=== PATIENT | male | born 1960 | race Caucasian/White ===

== ENCOUNTER 2017-08-08 08:36 | Emergency (ER) | payer MEDICAID ==
[~2017-08-08] VITALS: Ht 182.9 cm; Wt 129.3 kg
[~2017-08-08 08:36] MED LIST: ALBU0.084; ASPI325T4 PO; ASPI81CH43; BECL0.07; CARV25TA55 PO; FURO80TA PO; LORA-654; NITR400A5 TL; SPIR50TA2
[2017-08-08 10:07] LABS: Basophils # (auto) 0 uL; Basophils % (auto) 0.2 % (0.0-2.0); Eosinophils # (auto) 0 uL; Eosinophils % (auto) 0.1 % (0.0-7.0); Hemoglobin 16.8 g/dL (13.5-17.5); Lymphocytes # (auto) 1.6 uL; Lymphocytes % (auto) 15.7 % (10.0-50.0); Mean Corpuscular Hemoglobin 31.7 pg (28.0-32.0); Mean Corpuscular Hgb Conc. 33.7 g/dL (32.0-36.0); Mean Corpuscular Volume 94.1 fL (80.0-100.0); Monocytes # (auto) 1.2 uL; Monocytes % (auto) 11.1 % (0.0-12.0); Neutrophils # (auto) 7.6 uL; Neutrophils % (auto) 72.9 % (37.0-80.0); Nucleated Red Blood Cells % 0.1 %; Platelet Count (auto) 241 10^3/uL (140-450); Red Blood Cells 5.31 10^6/uL (4.5-5.90); Red Cell Distribution Width 14.4 % (11.8-14.3); White Blood Cell 10.5 10^3/uL (4.4-10.8)
[2017-08-08] MEDS ORDERED: SODIUM CHLORIDE 0.9% 1,000 ML IV ONE (10:28)
[2017-08-08 10:36] LABS: Alanine Aminotransferase 73 U/L (16-61); Albumin 2.8 g/dL (3.4-5.0); Alkaline Phosphatase 102 U/L (45-117); Anion Gap 8 (5-15); Aspartate Aminotransferase 57 U/L (15-37); Bilirubin, Total 0.6 mg/dL (0.2-1.0); Blood Urea Nitrogen 16 mg/dL (7-18); Calcium 8.2 mg/dL (8.5-10.1); Carbon Dioxide 33 mmol/L (21-32); Chloride 96 mmol/L (98-107); GFR African American 99 mL/min; GFR Non-African American 82 mL/min; Glucose 118 mg/dL (74-106); Potassium 3.8 mmol/L (3.5-5.1); Sodium 137 mmol/L (136-145); Total Protein 7.2 g/dL (6.4-8.2)
[2017-08-08] MEDS ORDERED: ALBUTEROL SULF 2.5 MG/0.5ML(0.5%) NEB SOLN NEB ONE (12:00)
[2017-08-08] MEDS ORDERED: IPRATROPIUM BROM 0.5 MG/2.5ML INH SOL NEB ONE (12:00)
[2017-08-08] MEDS ORDERED: FUROSEMIDE 40 MG/4 ML VIAL IV ONE (12:00)
[2017-08-08 14:53] VITALS: BP 111/63
== END 2017-08-08 14:55 | disposition home or self-care (01) ==
LOC: ER 08:36
DX: J44.1 Chronic obstructive pulmonary disease with (acute) exacerbation (principal); R09.89 Other specified symptoms and signs involving the circulatory and respiratory systems; E44.0 Moderate protein-calorie malnutrition; I50.9 Heart failure, unspecified; I11.0 Hypertensive heart disease with heart failure; I25.10 Atherosclerotic heart disease of native coronary artery without angina pectoris; F17.210 Nicotine dependence, cigarettes, uncomplicated; Z68.38 Body mass index [BMI] 38.0-38.9, adult
CPT/HCPCS: 36415; 71046; 80053; 83735; 83880; 84443; 84484; 85025; 87400; 93005; 94640; 94761; 96361; 96374; 99285; J1940; J7030

== ENCOUNTER 2017-11-29 10:32 | Emergency (ER) | payer MEDICAID ==
[~2017-11-29] VITALS: Ht 180.3 cm; Wt 136.1 kg
[2017-11-29 11:06] LABS: Basophils # (auto) 0.1 uL; Basophils % (auto) 1.3 % (0.0-2.0); Eosinophils # (auto) 0.2 uL; Eosinophils % (auto) 2.7 % (0.0-7.0); Hematocrit 52.4 % (41.0-53.0); Hemoglobin 17.3 g/dL (13.5-17.5); Lymphocytes # (auto) 2.7 uL; Lymphocytes % (auto) 32.1 % (10.0-50.0); Mean Corpuscular Hemoglobin 31.3 pg (28.0-32.0); Mean Corpuscular Hgb Conc. 33.1 g/dL (32.0-36.0); Mean Corpuscular Volume 94.5 fL (80.0-100.0); Monocytes # (auto) 1.1 uL; Monocytes % (auto) 13.2 % (0.0-12.0); Neutrophils # (auto) 4.3 uL; Neutrophils % (auto) 50.7 % (37.0-80.0); Nucleated Red Blood Cells % 0.1 %; Platelet Count (auto) 323 10^3/uL (140-450); Red Blood Cells 5.55 10^6/uL (4.5-5.90); White Blood Cell 8.6 10^3/uL (4.4-10.8)
[2017-11-29 11:31] LABS: Alanine Aminotransferase 16 U/L (16-61); Albumin 3.2 g/dL (3.4-5.0); Alkaline Phosphatase 107 U/L (45-117); Anion Gap 8 (5-15); Aspartate Aminotransferase 13 U/L (15-37); BUN/Creatinine Ratio 11.1; Bilirubin, Total 0.4 mg/dL (0.2-1.0); Blood Urea Nitrogen 26 mg/dL (7-18); Calcium 8.9 mg/dL (8.5-10.1); Carbon Dioxide 33 mmol/L (21-32); Chloride 98 mmol/L (98-107); GFR African American 37 mL/min; GFR Non-African American 31 mL/min; Glucose 105 mg/dL (74-106); Magnesium 2.7 mg/dL (1.6-2.6); Sodium 139 mmol/L (136-145); Total Protein 7.2 g/dL (6.4-8.2)
[2017-11-29] MEDS ORDERED: SODIUM CHLORIDE 0.9% 1,000 ML IV ONE ×2 (11:37→13:45)
[2017-11-29] MEDS ORDERED: POTASSIUM CHL 10% (20 MEQ/15ML) 15ml ORAL SOLN PO ONE (13:15)
[2017-11-29] MEDS ORDERED: HYDROcodone-ACET 5/325MG TAB PO PRN (13:45)
[2017-11-29] MEDS ORDERED: LORazepam 0.5 MG TAB PO PRN (13:45)
[2017-11-29] MEDS ORDERED: THIAMINE 100mg/ml INJ (200mg/2ml VIAL) IV ONE (13:45)
[2017-11-29] MEDS ORDERED: NITROGLYCERIN 0.4 MG SL TAB SL PRN (13:45)
[2017-11-29] MEDS ORDERED: chlordiazePOXIDE HCL 25 MG CAP PO PRN (13:45)
[2017-11-29] MEDS ORDERED: LABETALOL HCL 5 MG/ML ML 20ML VIAL IV PRN (13:45)
[2017-11-29] MEDS ORDERED: LACTULOSE 20Gm/30ML SOLN PO PRN (13:45)
[2017-11-29] MEDS ORDERED: PROMETHAZINE HCL 25 MG/ML 1ML IV PRN (13:45)
[2017-11-29] MEDS ORDERED: MORPHINE SULFATE 4 MG/ML SYR/VIAL IV PRN ×2 (13:45)
[2017-11-29] MEDS ORDERED: TEMAZEPAM 15 MG CAP PO PRN (13:45)
[2017-11-29] MEDS ORDERED: ACETAMINOPHEN 500 MG TAB PO PRN (13:45)
[2017-11-29 14:30] LABS: CRP High Sensitivity 1.29 mg/dL (< 0.3)
[2017-11-29] MEDS ORDERED: chlordiazePOXIDE HCL 5 MG CAP PO SCH (18:00)
[2017-11-29] MEDS: SODIUM CHLORIDE 0.9% 1,000 ML IV SCH ×2 (19:31→23:08)
[2017-11-29 22:00] VITALS: BP 108/74
[2017-11-29] MEDS ORDERED: ATORVASTATIN 20 MG TAB PO SCH (22:00)
[2017-11-30 08:42] LABS: Free T4 (Free Thyroxine) 1.2 ng/dL (0.89-1.76)
[2017-11-30 09:26] LABS: Folate (Folic Acid) 11.47 ng/mL (5.38-24)
[2017-11-30 09:36] LABS: Free T3 4.25 pg/mL (2.3-4.2)
[2017-11-30] MEDS ORDERED: THIAMINE 100mg/ml INJ (200mg/2ml VIAL) IV SCH (10:00)
[2017-11-30] MEDS ORDERED: ASPirin 81 mg TAB PO SCH (10:00)
[2017-11-30] MEDS ORDERED: ENOXAPARIN SOD 40 MG/0.4 ML SYRINGE SC SCH (10:00)
== END 2017-11-29 23:30 | disposition left against medical advice (07) ==
LOC: EDBD 10:32 → ER 10:32 → EDUNIT# 10:32 → TELE 10:33 → UNDOADMIN 10:33 → ER 23:30
DX: R55 Syncope and collapse (principal); E66.01 Morbid (severe) obesity due to excess calories; E87.6 Hypokalemia; I11.0 Hypertensive heart disease with heart failure; I50.9 Heart failure, unspecified; J44.9 Chronic obstructive pulmonary disease, unspecified; I25.10 Atherosclerotic heart disease of native coronary artery without angina pectoris; F17.210 Nicotine dependence, cigarettes, uncomplicated; Z79.82 Long term (current) use of aspirin; F41.9 Anxiety disorder, unspecified
CPT/HCPCS: 36415; 70450; 71045; 80053; 82150; 82550; 82607; 82746; 83605; 83690; 83735; 84439; 84443; 84481; 84484; 85025; 85379; 85652; 86141; 87040; 87077; 87186; 93886; 94761; 96374; 99285; J3411; 93005; 96361

== ENCOUNTER 2020-09-27 23:49 | Inpatient (IN) | payer MEDICAID ==
[~2020-09-27] VITALS: Ht 182.9 cm; Wt 134.9 kg
[~2020-09-27 23:49] MED LIST changes: +FURO1TAB32 PO; -FURO80TA PO; -LORA-654; +LORA0.5T20
[2020-09-28] VITALS (41 sets, daily range): BP systolic 84–189; BP diastolic 36–94
[2020-09-28 01:44] LABS: Basophils # (auto) 0.1 10 ^3/uL (0-0.2); Eosinophils # (auto) 0 10 ^3/uL (0-0.8)
[2020-09-28] MEDS ORDERED: FUROSEMIDE 20 MG/2 ML VIAL IV ONE (01:45)
[2020-09-28 01:47] LABS: Albumin 3.2 g/dL (3.4-5.0); BUN/Creatinine Ratio 16.9; Basophils % (auto) 0.7 % (0.0-2.0); Calcium 9.2 mg/dL (8.5-10.1); Eosinophils % (auto) 0.5 % (0.0-7.0); Hematocrit 54.7 % (41.0-53.0); Hemoglobin 17.9 g/dL (13.5-17.5); Lymphocytes # (auto) 1.6 10 ^3/uL (0.4-5.4); Lymphocytes % (auto) 22.5 % (10.0-50.0); Magnesium 2.1 mg/dL (1.6-2.6); Mean Corpuscular Hemoglobin 32.8 pg (28.0-32.0); Mean Corpuscular Hgb Conc. 32.8 g/dL (32.0-36.0); Monocytes # (auto) 0.8 10 ^3/uL (0-1.3); Monocytes % (auto) 11.6 % (0.0-12.0); Neutrophils # (auto) 4.6 10 ^3/uL (1.6-8.6); Neutrophils % (auto) 64.7 % (37.0-80.0); Nucleated Red Blood Cells % 0.5 %; Platelet Count (auto) 208 10^3/uL (140-450); Red Blood Cells 5.47 10^6/uL (4.5-5.90); Red Cell Distribution Width 15.8 % (11.8-14.3); White Blood Cell 7.1 10^3/uL (4.4-10.8)
[2020-09-28 01:49] LABS: INR 1.24 (0.9-1.15)
[2020-09-28 01:52] LABS: Bilirubin, Total 1.3 mg/dL (0.2-1.0)
[2020-09-28] MEDS ORDERED: NITROGLYCERIN 2% OINT 1GM PKG TD ONE (02:45)
[2020-09-28] MEDS ORDERED: ASPirin 325 MG TAB PO ONE (02:45)
[2020-09-28] MEDS ORDERED: ENOXAPARIN SOD 100 MG/1 ML SYRINGE SC ONE (02:45)
[2020-09-28] MEDS ORDERED: ONDANSETRON HCL 4 MG/2 ML VIAL IV ONE (03:30)
[2020-09-28] MEDS ORDERED: NITROGLYCERIN 50MG/250ML 250 ML IV ONE (05:30)
[2020-09-28] MEDS ORDERED: HYDROcodone-ACET 5/325MG TAB PO PRN (06:30)
[2020-09-28] MEDS ORDERED: ONDANSETRON HCL 4 MG/2 ML VIAL IV PRN (06:30)
[2020-09-28] MEDS ORDERED: NITROGLYCERIN 0.4 MG SL TAB SL PRN (06:30)
[2020-09-28] MEDS ORDERED: MORPHINE SULF INJ 2 MG/ML SYRINGE 1ML IV PRN (06:30)
[2020-09-28] MEDS ORDERED: DOCUSATE SOD 100 MG CAP PO PRN (06:30)
[2020-09-28] MEDS ORDERED: MORPHINE SULFATE 4 MG/ML SYR/VIAL IV PRN (06:30)
[2020-09-28 07:40] LABS: Basophils # (auto) 0.1 10 ^3/uL (0-0.2); Basophils % (auto) 0.8 % (0.0-2.0); Eosinophils # (auto) 0 10 ^3/uL (0-0.8); Eosinophils % (auto) 0.4 % (0.0-7.0); Hematocrit 51.5 % (41.0-53.0); Hemoglobin 16.8 g/dL (13.5-17.5); Lymphocytes # (auto) 1.3 10 ^3/uL (0.4-5.4); Lymphocytes % (auto) 17.6 % (10.0-50.0); Mean Corpuscular Hemoglobin 32.8 pg (28.0-32.0); Mean Corpuscular Hgb Conc. 32.6 g/dL (32.0-36.0); Mean Corpuscular Volume 100.6 fL (80.0-100.0); Monocytes # (auto) 1.1 10 ^3/uL (0-1.3); Monocytes % (auto) 14.1 % (0.0-12.0); Neutrophils # (auto) 5.1 10 ^3/uL (1.6-8.6); Neutrophils % (auto) 67.1 % (37.0-80.0); Nucleated Red Blood Cells % 0.2 %; Platelet Count (auto) 183 10^3/uL (140-450); Red Blood Cells 5.11 10^6/uL (4.5-5.90); Red Cell Distribution Width 15.7 % (11.8-14.3); White Blood Cell 7.6 10^3/uL (4.4-10.8)
[2020-09-28 07:52] LABS: Calcium 9.1 mg/dL (8.5-10.1); Potassium 4.7 mmol/L (3.5-5.1)
[2020-09-28 07:58] LABS: Albumin 3.1 g/dL (3.4-5.0); BUN/Creatinine Ratio 20.4; Bilirubin, Total 1.3 mg/dL (0.2-1.0); Total Protein 7.6 g/dL (6.4-8.2)
[2020-09-28] MEDS ORDERED: MIDAZOLAM HCL 5 MG/ML-1ML VIAL IV ONE (08:45)
[2020-09-28] MEDS ORDERED: ETOMIDATE (2MG/ML) 20ML VIAL IV ONE (08:45)
[2020-09-28] MEDS ORDERED: SUCCINYLCHOLINE CHLORIDE 20 MG/ML 10ML VIAL IV ONE (08:45)
[2020-09-28] MEDS: MIDAZOLAM DRIP 50 mg/50mL 50 ML IV SCH ×2 (08:45→19:20)
[2020-09-28 09:07] LABS: INR 1.22 (0.9-1.15); Partial Thromboplastin Time 34.3 sec (23.0-31.2)
[2020-09-28] MEDS ORDERED: NOREPINEPHRINE 8 MG/250ML KIT 250 ML IV ONE (09:34)
[2020-09-28] MEDS ORDERED: CARVEDILOL 12.5 MG TAB PO SCH (10:00)
[2020-09-28] MEDS ORDERED: PHENYLEPHRINE IV 250 ML IV ONE (10:42)
[2020-09-28] MEDS ORDERED: fentaNYL Drip 2500mCg/250mlNS 250 ML IV ONE (10:42)
[2020-09-28] MEDS: NOREPINEPHRINE 8 MG/250ML KIT 250 ML IV SCH (10:45)
[2020-09-28] MEDS ORDERED: AMIODARONE HCL (50 MG/ ML) 3 ML VIAL IV ONE (10:52)
[2020-09-28] MEDS ORDERED: AMIODARONE 450mg/250ml AE 250 ML IV ONE (10:52)
[2020-09-28] MEDS ORDERED: AMIODARONE HCL 150 MG in D5W 5% 100 ML IV ONE (11:00)
[2020-09-28] MEDS ORDERED: AMIODARONE 450mg/250ml AE 250 ML IV SCH (11:15)
[2020-09-28] MEDS: ASPirin 81 mg TAB PO SCH (13:00)
[2020-09-28] MEDS: MULTIPLE VITAMIN TAB PO SCH (13:00)
[2020-09-28] MEDS: ASCORBIC ACID 500 MG TAB PO SCH ×2 (13:00→21:12)
[2020-09-28] MEDS: ZINC SULFATE 220mg CAP or TAB PO SCH (13:00)
[2020-09-28] MEDS: FAMOTIDINE (10MG/ML) 2ML VL IV SCH ×2 (13:00→21:10)
[2020-09-28] MEDS: VASOPRESSIN 50 UNITS in D5W 5% 247.5 ML IV SCH (13:15)
[2020-09-28] MEDS: fentaNYL Drip 2500mCg/250mlNS 250 ML IV SCH (13:15)
[2020-09-28] MEDS ORDERED: PHENYLEPHRINE IV 250 ML IV SCH (13:15)
[2020-09-28] MEDS: SODIUM CHLOR 0.9% PF (SALINE LOCK) 10ML VIAL/SYR IV SCH ×2 (14:00→21:11)
[2020-09-28] MEDS ORDERED: HEPARIN SODIUM (PORCINE) 5000 UNITS/ML 1ML VIAL SC SCH (14:00)
[2020-09-28] MEDS ORDERED: ALBUTEROL SULF HFA 90MCG INH 200DOSE IN SCH (14:00)
[2020-09-28] MEDS ORDERED: DIGOXIN (250MCG/ML) 2 ML AMPULE IV ONE ×2 (15:45→20:00)
[2020-09-28] MEDS: AMIODARONE 450mg/250ml AE 250 ML IV SCH (17:15)
[2020-09-28] MEDS: FUROSEMIDE 40 MG/4 ML VIAL IV SCH (18:15)
[2020-09-28] MEDS: methylPREDNISolone SOD SUCC 40 MG/ML VL IV SCH (21:14)
[2020-09-28] MEDS: ACETAMINOPHEN 325 MG TAB PO PRN (21:40)
[2020-09-28] MEDS: PHENYLEPHRINE INJ 40 MG in SODIUM CHL 0.9% 246 ML IV SCH (22:00)
[2020-09-29] VITALS (78 sets, daily range): BP systolic 88–128; BP diastolic 55–79
[2020-09-29 00:18] LABS: Urine Bacteria FEW /hpf (None Seen); Urine Blood 3+ /uL (Negative); Urine Hyaline Cast MANY /lpf (0 - 2); Urine Mucus FEW (None Seen); Urine Specific Gravity 1.016 (1.001-1.035); Urine WBC 147 /hpf (0 - 3); Urine WBC Clumps PRESENT /hpf (None Seen)
[2020-09-29 04:37] LABS: Basophils # (auto) 0 10 ^3/uL (0-0.2); Basophils % (auto) 0.3 % (0.0-2.0); Eosinophils # (auto) 0 10 ^3/uL (0-0.8); Hematocrit 50.8 % (41.0-53.0); Hemoglobin 16.8 g/dL (13.5-17.5); Lymphocytes # (auto) 0.5 10 ^3/uL (0.4-5.4); Lymphocytes % (auto) 4.9 % (10.0-50.0); Mean Corpuscular Hemoglobin 32.5 pg (28.0-32.0); Mean Corpuscular Volume 98.5 fL (80.0-100.0); Monocytes # (auto) 0.7 10 ^3/uL (0-1.3); Monocytes % (auto) 7.2 % (0.0-12.0); Neutrophils # (auto) 8.8 10 ^3/uL (1.6-8.6); Neutrophils % (auto) 87.6 % (37.0-80.0); Nucleated Red Blood Cells % 0.2 %; Platelet Count (auto) 180 10^3/uL (140-450); Red Blood Cells 5.15 10^6/uL (4.5-5.90); Red Cell Distribution Width 14.9 % (11.8-14.3); White Blood Cell 10.1 10^3/uL (4.4-10.8)
[2020-09-29 05:30] LABS: Calcium 8.8 mg/dL (8.5-10.1); Potassium 4.9 mmol/L (3.5-5.1)
[2020-09-29 05:34] LABS: Albumin 2.5 g/dL (3.4-5.0); BUN/Creatinine Ratio 19.6
[2020-09-29 05:36] LABS: Bilirubin, Total 2.2 mg/dL (0.2-1.0); Total Protein 6.7 g/dL (6.4-8.2)
[2020-09-29] MEDS: SODIUM CHLOR 0.9% PF (SALINE LOCK) 10ML VIAL/SYR IV SCH ×3 (06:10→21:49)
[2020-09-29] MEDS: FUROSEMIDE 40 MG/4 ML VIAL IV SCH ×2 (06:11→17:30)
[2020-09-29] MEDS: MIDAZOLAM DRIP 50 mg/50mL 50 ML IV SCH ×5 (06:35→23:45)
[2020-09-29] MEDS: PHENYLEPHRINE INJ 40 MG in SODIUM CHL 0.9% 246 ML IV SCH ×4 (07:30→22:19)
[2020-09-29] MEDS: AMIODARONE 450mg/250ml AE 250 ML IV SCH ×2 (08:39→23:44)
[2020-09-29] MEDS: cefTRIAXone 1GM/50ML D5W 50 ML IV SCH (09:10)
[2020-09-29] MEDS: FAMOTIDINE (10MG/ML) 2ML VL IV SCH ×2 (09:16→21:49)
[2020-09-29] MEDS: ASPirin 81 mg TAB PO SCH (09:16)
[2020-09-29] MEDS: methylPREDNISolone SOD SUCC 40 MG/ML VL IV SCH ×2 (09:16→21:49)
[2020-09-29] MEDS: ENOXAPARIN SOD 150 MG/1 ML SYRINGE SC SCH (09:17)
[2020-09-29] MEDS: ASCORBIC ACID 500 MG TAB PO SCH ×2 (09:17→22:17)
[2020-09-29] MEDS: MULTIPLE VITAMIN TAB PO SCH (09:17)
[2020-09-29] MEDS: ZINC SULFATE 220mg CAP or TAB PO SCH (09:17)
[2020-09-29] MEDS ORDERED: MORPHINE SULFATE 4 MG/ML SYR/VIAL IV PRN (10:00)
[2020-09-29] MEDS: NOREPINEPHRINE 8 MG/250ML KIT 250 ML IV SCH (10:45)
[2020-09-29] MEDS: AZITHROMYCIN 500MG/ 250ML 250 ML IV SCH (11:00)
[2020-09-29] MEDS: VASOPRESSIN 50 UNITS in D5W 5% 247.5 ML IV SCH (13:15)
[2020-09-29] MEDS: fentaNYL Drip 2500mCg/250mlNS 250 ML IV SCH (13:15)
[2020-09-30] VITALS (103 sets, daily range): BP systolic 80–124; BP diastolic 54–80
[2020-09-30] MEDS: fentaNYL Drip 2500mCg/250mlNS 250 ML IV SCH (04:21)
[2020-09-30] MEDS: MIDAZOLAM DRIP 50 mg/50mL 50 ML IV SCH ×5 (04:21→22:30)
[2020-09-30] MEDS: PHENYLEPHRINE INJ 40 MG in SODIUM CHL 0.9% 246 ML IV SCH ×3 (05:12→17:43)
[2020-09-30 05:22] LABS: Basophils # (auto) 0 10 ^3/uL (0-0.2); Basophils % (auto) 0.1 % (0.0-2.0); Eosinophils # (auto) 0 10 ^3/uL (0-0.8); Hematocrit 49.1 % (41.0-53.0); Hemoglobin 16.5 g/dL (13.5-17.5); Lymphocytes # (auto) 0.5 10 ^3/uL (0.4-5.4); Lymphocytes % (auto) 4.7 % (10.0-50.0); Mean Corpuscular Hemoglobin 32.9 pg (28.0-32.0); Mean Corpuscular Hgb Conc. 33.5 g/dL (32.0-36.0); Mean Corpuscular Volume 98.1 fL (80.0-100.0); Monocytes # (auto) 0.5 10 ^3/uL (0-1.3); Monocytes % (auto) 4.8 % (0.0-12.0); Neutrophils # (auto) 9.7 10 ^3/uL (1.6-8.6); Neutrophils % (auto) 90.4 % (37.0-80.0); Nucleated Red Blood Cells % 0.2 %; Platelet Count (auto) 195 10^3/uL (140-450); Red Blood Cells 5.01 10^6/uL (4.5-5.90); Red Cell Distribution Width 15.2 % (11.8-14.3); White Blood Cell 10.7 10^3/uL (4.4-10.8)
[2020-09-30 05:28] LABS: Calcium 8.8 mg/dL (8.5-10.1); Potassium 4.1 mmol/L (3.5-5.1)
[2020-09-30 05:30] LABS: BUN/Creatinine Ratio 27.2
[2020-09-30] MEDS: SODIUM CHLOR 0.9% PF (SALINE LOCK) 10ML VIAL/SYR IV SCH ×3 (05:30→21:36)
[2020-09-30] MEDS: FUROSEMIDE 40 MG/4 ML VIAL IV SCH ×2 (05:30→18:05)
[2020-09-30] MEDS: ENOXAPARIN SOD 150 MG/1 ML SYRINGE SC SCH (08:58)
[2020-09-30] MEDS: ASCORBIC ACID 500 MG TAB PO SCH ×2 (08:58→21:37)
[2020-09-30] MEDS: MULTIPLE VITAMIN TAB PO SCH (08:58)
[2020-09-30] MEDS: ASPirin 81 mg TAB PO SCH (08:58)
[2020-09-30] MEDS: methylPREDNISolone SOD SUCC 40 MG/ML VL IV SCH ×2 (08:58→21:36)
[2020-09-30] MEDS: ZINC SULFATE 220mg CAP or TAB PO SCH (08:58)
[2020-09-30] MEDS: FAMOTIDINE (10MG/ML) 2ML VL IV SCH ×2 (08:59→21:35)
[2020-09-30] MEDS: cefTRIAXone 1GM/50ML D5W 50 ML IV SCH (08:59)
[2020-09-30] MEDS: AZITHROMYCIN 500MG/ 250ML 250 ML IV SCH (09:59)
[2020-09-30] MEDS: AMIODARONE HCL 200 MG TAB PO SCH ×2 (10:16→21:37)
[2020-09-30] MEDS: NOREPINEPHRINE 8 MG/250ML KIT 250 ML IV SCH (10:45)
[2020-09-30] MEDS: VASOPRESSIN 50 UNITS in D5W 5% 247.5 ML IV SCH (13:15)
[2020-09-30] MEDS ORDERED: SENNA 8.6 MG TAB PO PRN (13:15)
[2020-09-30] MEDS ORDERED: VANCOMYCIN PER PHARMACY 0 MG IV SCH (22:00)
[2020-09-30] MEDS ORDERED: VANCOMYCIN 1GM/250ML 250 ML IV ONE (22:30)
[2020-10-01] VITALS (106 sets, daily range): BP systolic 88–134; BP diastolic 51–91
[2020-10-01] MEDS: PHENYLEPHRINE INJ 40 MG in SODIUM CHL 0.9% 246 ML IV SCH ×2 (01:00→09:37)
[2020-10-01] MEDS: fentaNYL Drip 2500mCg/250mlNS 250 ML IV SCH ×2 (02:00→17:43)
[2020-10-01] MEDS: MIDAZOLAM DRIP 50 mg/50mL 50 ML IV SCH ×5 (02:31→23:30)
[2020-10-01 04:39] LABS: Basophils # (auto) 0 10 ^3/uL (0-0.2); Basophils % (auto) 0.2 % (0.0-2.0); Eosinophils # (auto) 0 10 ^3/uL (0-0.8); Hemoglobin 16.3 g/dL (13.5-17.5); Lymphocytes # (auto) 0.5 10 ^3/uL (0.4-5.4); Lymphocytes % (auto) 4.4 % (10.0-50.0); Mean Corpuscular Hemoglobin 32.6 pg (28.0-32.0); Mean Corpuscular Hgb Conc. 33.2 g/dL (32.0-36.0); Mean Corpuscular Volume 98.3 fL (80.0-100.0); Monocytes # (auto) 0.6 10 ^3/uL (0-1.3); Monocytes % (auto) 5.7 % (0.0-12.0); Neutrophils # (auto) 9.4 10 ^3/uL (1.6-8.6); Neutrophils % (auto) 89.7 % (37.0-80.0); Platelet Count (auto) 238 10^3/uL (140-450); Red Blood Cells 4.99 10^6/uL (4.5-5.90); Red Cell Distribution Width 15.5 % (11.8-14.3); White Blood Cell 10.5 10^3/uL (4.4-10.8)
[2020-10-01 04:48] LABS: BUN/Creatinine Ratio 29.7; Calcium 8.6 mg/dL (8.5-10.1); Potassium 4.3 mmol/L (3.5-5.1)
[2020-10-01] MEDS: SODIUM CHLOR 0.9% PF (SALINE LOCK) 10ML VIAL/SYR IV SCH ×3 (05:46→22:04)
[2020-10-01] MEDS: FUROSEMIDE 40 MG/4 ML VIAL IV SCH ×2 (05:46→17:44)
[2020-10-01] MEDS: cefTRIAXone 1GM/50ML D5W 50 ML IV SCH (09:10)
[2020-10-01] MEDS: ZINC SULFATE 220mg CAP or TAB PO SCH (09:35)
[2020-10-01] MEDS: AMIODARONE HCL 200 MG TAB PO SCH ×2 (09:35→22:04)
[2020-10-01] MEDS: FAMOTIDINE (10MG/ML) 2ML VL IV SCH ×2 (09:35→22:04)
[2020-10-01] MEDS: methylPREDNISolone SOD SUCC 40 MG/ML VL IV SCH ×2 (09:35→22:04)
[2020-10-01] MEDS: AZITHROMYCIN 500MG/ 250ML 250 ML IV SCH (09:35)
[2020-10-01] MEDS: ASPirin 81 mg TAB PO SCH (09:35)
[2020-10-01] MEDS: ENOXAPARIN SOD 150 MG/1 ML SYRINGE SC SCH (09:35)
[2020-10-01] MEDS: ASCORBIC ACID 500 MG TAB PO SCH ×2 (09:35→22:05)
[2020-10-01] MEDS: MULTIPLE VITAMIN TAB PO SCH (09:36)
[2020-10-01] MEDS ORDERED: LINEZOLID 600MG/300ML 300 ML IV ONE (10:30)
[2020-10-01] MEDS: NOREPINEPHRINE 8 MG/250ML KIT 250 ML IV SCH (10:45)
[2020-10-01] MEDS ORDERED: VANCOMYCIN 1GM/250ML 250 ML IV SCH (13:00)
[2020-10-01] MEDS: VASOPRESSIN 50 UNITS in D5W 5% 247.5 ML IV SCH (13:15)
[2020-10-01] MEDS: LINEZOLID 600MG/300ML 300 ML IV SCH (22:04)
[2020-10-02] VITALS (71 sets, daily range): BP systolic 87–130; BP diastolic 49–90
[2020-10-02] MEDS: MIDAZOLAM DRIP 50 mg/50mL 50 ML IV SCH ×3 (04:00→16:33)
[2020-10-02 05:24] LABS: Basophils # (auto) 0 10 ^3/uL (0-0.2); Basophils % (auto) 0.2 % (0.0-2.0); Eosinophils # (auto) 0 10 ^3/uL (0-0.8); Hematocrit 48.9 % (41.0-53.0); Hemoglobin 16.2 g/dL (13.5-17.5); Lymphocytes # (auto) 0.4 10 ^3/uL (0.4-5.4); Lymphocytes % (auto) 5.5 % (10.0-50.0); Mean Corpuscular Hemoglobin 32.4 pg (28.0-32.0); Mean Corpuscular Hgb Conc. 33.2 g/dL (32.0-36.0); Mean Corpuscular Volume 97.6 fL (80.0-100.0); Monocytes # (auto) 0.4 10 ^3/uL (0-1.3); Neutrophils # (auto) 5.6 10 ^3/uL (1.6-8.6); Neutrophils % (auto) 88.3 % (37.0-80.0); Nucleated Red Blood Cells % 0.2 %; Platelet Count (auto) 233 10^3/uL (140-450); Red Blood Cells 5.01 10^6/uL (4.5-5.90); Red Cell Distribution Width 15.3 % (11.8-14.3); White Blood Cell 6.4 10^3/uL (4.4-10.8)
[2020-10-02 05:36] LABS: Potassium 4.3 mmol/L (3.5-5.1)
[2020-10-02 05:42] LABS: BUN/Creatinine Ratio 35.3
[2020-10-02] MEDS: SODIUM CHLOR 0.9% PF (SALINE LOCK) 10ML VIAL/SYR IV SCH ×3 (06:00→21:49)
[2020-10-02] MEDS: FUROSEMIDE 40 MG/4 ML VIAL IV SCH ×2 (06:00→18:02)
[2020-10-02] MEDS: PHENYLEPHRINE INJ 40 MG in SODIUM CHL 0.9% 246 ML IV SCH (07:36)
[2020-10-02] MEDS: cefTRIAXone 1GM/50ML D5W 50 ML IV SCH (09:12)
[2020-10-02] MEDS: methylPREDNISolone SOD SUCC 40 MG/ML VL IV SCH ×2 (09:40→21:49)
[2020-10-02] MEDS: AZITHROMYCIN 500MG/ 250ML 250 ML IV SCH (09:40)
[2020-10-02] MEDS: FAMOTIDINE (10MG/ML) 2ML VL IV SCH ×2 (09:40→21:48)
[2020-10-02] MEDS: ZINC SULFATE 220mg CAP or TAB PO SCH (09:41)
[2020-10-02] MEDS: MULTIPLE VITAMIN TAB PO SCH (09:41)
[2020-10-02] MEDS: LINEZOLID 600MG/300ML 300 ML IV SCH ×2 (09:41→21:49)
[2020-10-02] MEDS: ENOXAPARIN SOD 150 MG/1 ML SYRINGE SC SCH (09:42)
[2020-10-02] MEDS: ASCORBIC ACID 500 MG TAB PO SCH ×2 (09:42→21:50)
[2020-10-02] MEDS: AMIODARONE HCL 200 MG TAB PO SCH ×2 (09:42→21:50)
[2020-10-02] MEDS: ASPirin 81 mg TAB PO SCH (09:42)
[2020-10-02] MEDS: NOREPINEPHRINE 8 MG/250ML KIT 250 ML IV SCH (10:45)
[2020-10-02] MEDS: VASOPRESSIN 50 UNITS in D5W 5% 247.5 ML IV SCH (13:15)
[2020-10-02 18:51] LABS: Basophils # (auto) 0 10 ^3/uL (0-0.2); Basophils % (auto) 0.1 % (0.0-2.0); Eosinophils # (auto) 0 10 ^3/uL (0-0.8); Eosinophils % (auto) 0.1 % (0.0-7.0); Hematocrit 49.9 % (41.0-53.0); Hemoglobin 16.5 g/dL (13.5-17.5); Lymphocytes # (auto) 0.3 10 ^3/uL (0.4-5.4); Lymphocytes % (auto) 5.3 % (10.0-50.0); Mean Corpuscular Hemoglobin 32.3 pg (28.0-32.0); Mean Corpuscular Volume 97.9 fL (80.0-100.0); Monocytes # (auto) 0.5 10 ^3/uL (0-1.3); Monocytes % (auto) 8.4 % (0.0-12.0); Neutrophils # (auto) 5.5 10 ^3/uL (1.6-8.6); Neutrophils % (auto) 86.1 % (37.0-80.0); Nucleated Red Blood Cells % 0.1 %; Platelet Count (auto) 231 10^3/uL (140-450); Red Blood Cells 5.09 10^6/uL (4.5-5.90); Red Cell Distribution Width 15.5 % (11.8-14.3); White Blood Cell 6.4 10^3/uL (4.4-10.8)
[2020-10-03] VITALS (78 sets, daily range): BP systolic 92–129; BP diastolic 34–99
[2020-10-03] MEDS: MIDAZOLAM DRIP 50 mg/50mL 50 ML IV SCH (00:08)
[2020-10-03 04:05] LABS: Basophils # (auto) 0 10 ^3/uL (0-0.2); Basophils % (auto) 0.2 % (0.0-2.0); Eosinophils # (auto) 0 10 ^3/uL (0-0.8); Hemoglobin 16.8 g/dL (13.5-17.5); Lymphocytes # (auto) 0.3 10 ^3/uL (0.4-5.4); Lymphocytes % (auto) 5.9 % (10.0-50.0); Mean Corpuscular Hemoglobin 32.4 pg (28.0-32.0); Mean Corpuscular Volume 98.3 fL (80.0-100.0); Monocytes # (auto) 0.3 10 ^3/uL (0-1.3); Monocytes % (auto) 5.7 % (0.0-12.0); Neutrophils # (auto) 4.8 10 ^3/uL (1.6-8.6); Neutrophils % (auto) 88.2 % (37.0-80.0); Nucleated Red Blood Cells % 0.1 %; Platelet Count (auto) 203 10^3/uL (140-450); Red Blood Cells 5.18 10^6/uL (4.5-5.90); Red Cell Distribution Width 15.6 % (11.8-14.3); White Blood Cell 5.4 10^3/uL (4.4-10.8)
[2020-10-03 04:23] LABS: Calcium 8.8 mg/dL (8.5-10.1); Potassium 4.2 mmol/L (3.5-5.1)
[2020-10-03 04:26] LABS: BUN/Creatinine Ratio 35.2
[2020-10-03] MEDS: SODIUM CHLOR 0.9% PF (SALINE LOCK) 10ML VIAL/SYR IV SCH ×3 (06:15→22:00)
[2020-10-03] MEDS: FUROSEMIDE 40 MG/4 ML VIAL IV SCH ×2 (06:43→17:43)
[2020-10-03] MEDS: cefTRIAXone 1GM/50ML D5W 50 ML IV SCH (09:33)
[2020-10-03] MEDS: methylPREDNISolone SOD SUCC 40 MG/ML VL IV SCH ×2 (10:01→22:00)
[2020-10-03] MEDS: FAMOTIDINE (10MG/ML) 2ML VL IV SCH ×2 (10:01→22:00)
[2020-10-03] MEDS: ZINC SULFATE 220mg CAP or TAB PO SCH (10:03)
[2020-10-03] MEDS: AMIODARONE HCL 200 MG TAB PO SCH ×2 (10:03→22:00)
[2020-10-03] MEDS: LACTULOSE 20Gm/30ML SOLN PO SCH (10:03)
[2020-10-03] MEDS: LINEZOLID 600MG/300ML 300 ML IV SCH ×2 (10:03→22:00)
[2020-10-03] MEDS: AZITHROMYCIN 500MG/ 250ML 250 ML IV SCH (10:03)
[2020-10-03] MEDS: ASPirin 81 mg TAB PO SCH (10:03)
[2020-10-03] MEDS: MULTIPLE VITAMIN TAB PO SCH (10:03)
[2020-10-03] MEDS: ASCORBIC ACID 500 MG TAB PO SCH ×2 (10:04→22:00)
[2020-10-03] MEDS: ENOXAPARIN SOD 150 MG/1 ML SYRINGE SC SCH (10:04)
[2020-10-03] MEDS: NOREPINEPHRINE 8 MG/250ML KIT 250 ML IV SCH (10:45)
[2020-10-03] MEDS ORDERED: AMIODARONE 450mg/250ml AE 250 ML IV ONE (12:31)
[2020-10-03] MEDS ORDERED: AMIODARONE HCL (50 MG/ ML) 3 ML VIAL IV ONE (12:31)
[2020-10-03] MEDS ORDERED: ADENOSINE 6 MG/2 ML INJ IV ONE ×2 (12:38→13:00)
[2020-10-03] MEDS: VASOPRESSIN 50 UNITS in D5W 5% 247.5 ML IV SCH (13:15)
[2020-10-03] MEDS: fentaNYL Drip 2500mCg/250mlNS 250 ML IV SCH (13:15)
[2020-10-03] MEDS ORDERED: AMIODARONE HCL 150 MG in D5W 5% 100 ML IV ONE (13:30)
[2020-10-03] MEDS ORDERED: AMIODARONE 450mg/250ml AE 250 ML IV SCH ×3 (13:45→19:45)
[2020-10-03] MEDS: PHENYLEPHRINE INJ 40 MG in SODIUM CHL 0.9% 246 ML IV SCH (16:10)
[2020-10-03] MEDS: AMIODARONE 450mg/250ml AE 250 ML IV SCH (18:47)
[2020-10-04] VITALS (69 sets, daily range): BP systolic 89–117; BP diastolic 56–91
[2020-10-04 04:31] LABS: Basophils # (auto) 0 10 ^3/uL (0-0.2); Eosinophils # (auto) 0 10 ^3/uL (0-0.8); Neutrophils # (auto) 4.1 10 ^3/uL (1.6-8.6); Neutrophils % (auto) 85.1 % (37.0-80.0); White Blood Cell 4.8 10^3/uL (4.4-10.8)
[2020-10-04 04:33] LABS: Basophils % (auto) 0.4 % (0.0-2.0); Eosinophils % (auto) 0.1 % (0.0-7.0); Hematocrit 51.6 % (41.0-53.0); Hemoglobin 17.4 g/dL (13.5-17.5); Lymphocytes # (auto) 0.3 10 ^3/uL (0.4-5.4); Mean Corpuscular Hemoglobin 33.2 pg (28.0-32.0); Mean Corpuscular Hgb Conc. 33.7 g/dL (32.0-36.0); Mean Corpuscular Volume 98.4 fL (80.0-100.0); Monocytes # (auto) 0.4 10 ^3/uL (0-1.3); Monocytes % (auto) 8.4 % (0.0-12.0); Nucleated Red Blood Cells % 0.4 %; Platelet Count (auto) 201 10^3/uL (140-450); Red Blood Cells 5.24 10^6/uL (4.5-5.90); Red Cell Distribution Width 15.1 % (11.8-14.3)
[2020-10-04 04:50] LABS: Potassium 4.4 mmol/L (3.5-5.1)
[2020-10-04 04:57] LABS: BUN/Creatinine Ratio 40.1; Magnesium 2.6 mg/dL (1.6-2.6)
[2020-10-04] MEDS: FUROSEMIDE 40 MG/4 ML VIAL IV SCH ×2 (06:00→17:36)
[2020-10-04] MEDS: SODIUM CHLOR 0.9% PF (SALINE LOCK) 10ML VIAL/SYR IV SCH ×3 (06:00→22:04)
[2020-10-04] MEDS: PHENYLEPHRINE INJ 40 MG in SODIUM CHL 0.9% 246 ML IV SCH (07:25)
[2020-10-04] MEDS: cefTRIAXone 1GM/50ML D5W 50 ML IV SCH (09:30)
[2020-10-04] MEDS: AMIODARONE HCL 200 MG TAB PO SCH ×2 (09:35→22:00)
[2020-10-04] MEDS: ZINC SULFATE 220mg CAP or TAB PO SCH (09:36)
[2020-10-04] MEDS: ASPirin 81 mg TAB PO SCH (09:36)
[2020-10-04] MEDS: MULTIPLE VITAMIN TAB PO SCH (09:36)
[2020-10-04] MEDS: AZITHROMYCIN 500MG/ 250ML 250 ML IV SCH (09:36)
[2020-10-04] MEDS: FAMOTIDINE (10MG/ML) 2ML VL IV SCH ×2 (09:36→22:04)
[2020-10-04] MEDS: methylPREDNISolone SOD SUCC 40 MG/ML VL IV SCH ×2 (09:36→22:04)
[2020-10-04] MEDS: LINEZOLID 600MG/300ML 300 ML IV SCH ×2 (09:36→22:04)
[2020-10-04] MEDS: LACTULOSE 20Gm/30ML SOLN PO SCH (09:36)
[2020-10-04] MEDS: ENOXAPARIN SOD 150 MG/1 ML SYRINGE SC SCH (09:36)
[2020-10-04] MEDS: ASCORBIC ACID 500 MG TAB PO SCH ×2 (09:36→22:05)
[2020-10-04] MEDS: NOREPINEPHRINE 8 MG/250ML KIT 250 ML IV SCH (09:37)
[2020-10-04] MEDS: VASOPRESSIN 50 UNITS in D5W 5% 247.5 ML IV SCH (10:24)
[2020-10-04] MEDS: AMIODARONE 450mg/250ml AE 250 ML IV SCH (11:45)
[2020-10-04] MEDS ORDERED: MAGNESIUM CITRATE SOLUTION 300 ML BTL PO ONE (12:00)
[2020-10-04] MEDS ORDERED: MILK OF MAGNESIA 30ML SUSP PO PRN (12:15)
[2020-10-04] MEDS: MIDAZOLAM DRIP 50 mg/50mL 50 ML IV SCH (15:28)
[2020-10-04] MEDS: fentaNYL Drip 2500mCg/250mlNS 250 ML IV SCH (23:45)
[2020-10-05] VITALS (86 sets, daily range): BP systolic 84–128; BP diastolic 58–88
[2020-10-05] MEDS: AMIODARONE 450mg/250ml AE 250 ML IV SCH (01:45)
[2020-10-05 04:33] LABS: Basophils # (auto) 0 10 ^3/uL (0-0.2); Eosinophils # (auto) 0 10 ^3/uL (0-0.8); Neutrophils # (auto) 4.3 10 ^3/uL (1.6-8.6); Red Cell Distribution Width 14.9 % (11.8-14.3); White Blood Cell 5.1 10^3/uL (4.4-10.8)
[2020-10-05 04:36] LABS: Basophils % (auto) 0.5 % (0.0-2.0); Hematocrit 53.1 % (41.0-53.0); Hemoglobin 17.8 g/dL (13.5-17.5); Lymphocytes # (auto) 0.2 10 ^3/uL (0.4-5.4); Lymphocytes % (auto) 4.7 % (10.0-50.0); Mean Corpuscular Hemoglobin 32.7 pg (28.0-32.0); Mean Corpuscular Hgb Conc. 33.5 g/dL (32.0-36.0); Mean Corpuscular Volume 97.8 fL (80.0-100.0); Monocytes # (auto) 0.5 10 ^3/uL (0-1.3); Monocytes % (auto) 9.5 % (0.0-12.0); Neutrophils % (auto) 85.3 % (37.0-80.0); Nucleated Red Blood Cells % 0.1 %; Platelet Count (auto) 215 10^3/uL (140-450); Red Blood Cells 5.43 10^6/uL (4.5-5.90)
[2020-10-05] MEDS: SODIUM CHLOR 0.9% PF (SALINE LOCK) 10ML VIAL/SYR IV SCH ×3 (06:03→22:00)
[2020-10-05] MEDS: FUROSEMIDE 40 MG/4 ML VIAL IV SCH ×2 (06:03→17:41)
[2020-10-05 07:42] LABS: BUN/Creatinine Ratio 40.3; Calcium 8.6 mg/dL (8.5-10.1); Potassium 4.1 mmol/L (3.5-5.1)
[2020-10-05] MEDS: PHENYLEPHRINE INJ 40 MG in SODIUM CHL 0.9% 246 ML IV SCH ×2 (08:10→12:59)
[2020-10-05] MEDS: NOREPINEPHRINE 8 MG/250ML KIT 250 ML IV SCH (08:19)
[2020-10-05] MEDS: MIDAZOLAM DRIP 50 mg/50mL 50 ML IV SCH ×2 (08:45→15:30)
[2020-10-05] MEDS: cefTRIAXone 1GM/50ML D5W 50 ML IV SCH (09:00)
[2020-10-05] MEDS: MULTIPLE VITAMIN TAB PO SCH (09:30)
[2020-10-05] MEDS: LINEZOLID 600MG/300ML 300 ML IV SCH (09:30)
[2020-10-05] MEDS: AMIODARONE HCL 200 MG TAB PO SCH ×2 (09:30→21:53)
[2020-10-05] MEDS: ZINC SULFATE 220mg CAP or TAB PO SCH (09:30)
[2020-10-05] MEDS: ENOXAPARIN SOD 150 MG/1 ML SYRINGE SC SCH ×2 (09:30→21:54)
[2020-10-05] MEDS: LACTULOSE 20Gm/30ML SOLN PO SCH (09:30)
[2020-10-05] MEDS: methylPREDNISolone SOD SUCC 40 MG/ML VL IV SCH (09:30)
[2020-10-05] MEDS: AZITHROMYCIN 500MG/ 250ML 250 ML IV SCH (09:30)
[2020-10-05] MEDS: FAMOTIDINE (10MG/ML) 2ML VL IV SCH ×2 (09:30→21:53)
[2020-10-05] MEDS: ASCORBIC ACID 500 MG TAB PO SCH ×2 (09:30→21:53)
[2020-10-05] MEDS: ASPirin 81 mg TAB PO SCH (09:30)
[2020-10-05] MEDS: VASOPRESSIN 50 UNITS in D5W 5% 247.5 ML IV SCH (09:31)
[2020-10-05] MEDS: fentaNYL Drip 2500mCg/250mlNS 250 ML IV SCH (13:15)
[2020-10-05] MEDS: ACETAMINOPHEN 325 MG TAB PO PRN (14:19)
[2020-10-06] VITALS (103 sets, daily range): BP systolic 84–167; BP diastolic 44–110
[2020-10-06] MEDS: MIDAZOLAM DRIP 50 mg/50mL 50 ML IV SCH
[2020-10-06 04:04] LABS: Basophils # (auto) 0 10 ^3/uL (0-0.2); Eosinophils # (auto) 0 10 ^3/uL (0-0.8); Lymphocytes # (auto) 0.6 10 ^3/uL (0.4-5.4)
[2020-10-06 04:07] LABS: Basophils % (auto) 0.3 % (0.0-2.0); Eosinophils % (auto) 0.1 % (0.0-7.0); Hematocrit 54.6 % (41.0-53.0); Hemoglobin 18.1 g/dL (13.5-17.5); Lymphocytes % (auto) 8.1 % (10.0-50.0); Mean Corpuscular Hemoglobin 32.6 pg (28.0-32.0); Mean Corpuscular Hgb Conc. 33.2 g/dL (32.0-36.0); Mean Corpuscular Volume 98.2 fL (80.0-100.0); Monocytes # (auto) 1.2 10 ^3/uL (0-1.3); Monocytes % (auto) 15.6 % (0.0-12.0); Neutrophils # (auto) 5.6 10 ^3/uL (1.6-8.6); Neutrophils % (auto) 75.9 % (37.0-80.0); Nucleated Red Blood Cells % 0.7 %; Platelet Count (auto) 217 10^3/uL (140-450); Red Blood Cells 5.56 10^6/uL (4.5-5.90); Red Cell Distribution Width 15.2 % (11.8-14.3); White Blood Cell 7.4 10^3/uL (4.4-10.8)
[2020-10-06 04:20] LABS: Calcium 9.1 mg/dL (8.5-10.1); Potassium 3.9 mmol/L (3.5-5.1)
[2020-10-06 04:23] LABS: BUN/Creatinine Ratio 43.9
[2020-10-06] MEDS: FUROSEMIDE 40 MG/4 ML VIAL IV SCH (05:08)
[2020-10-06] MEDS: SODIUM CHLOR 0.9% PF (SALINE LOCK) 10ML VIAL/SYR IV SCH ×3 (05:09→20:26)
[2020-10-06] MEDS: ENOXAPARIN SOD 150 MG/1 ML SYRINGE SC SCH ×2 (09:45→20:26)
[2020-10-06] MEDS: ASCORBIC ACID 500 MG TAB PO SCH (09:45)
[2020-10-06] MEDS: ASPirin 81 mg TAB PO SCH (09:45)
[2020-10-06] MEDS: ZINC SULFATE 220mg CAP or TAB PO SCH (09:45)
[2020-10-06] MEDS: FAMOTIDINE (10MG/ML) 2ML VL IV SCH ×2 (09:45→20:26)
[2020-10-06] MEDS: LACTULOSE 20Gm/30ML SOLN PO SCH (09:45)
[2020-10-06] MEDS: AMIODARONE HCL 200 MG TAB PO SCH (09:45)
[2020-10-06] MEDS: MULTIPLE VITAMIN TAB PO SCH (09:45)
[2020-10-06] MEDS: NOREPINEPHRINE 8 MG/250ML KIT 250 ML IV SCH (10:45)
[2020-10-06] MEDS: PHENYLEPHRINE INJ 40 MG in SODIUM CHL 0.9% 246 ML IV SCH (10:50)
[2020-10-06] MEDS: VASOPRESSIN 50 UNITS in D5W 5% 247.5 ML IV SCH (11:48)
[2020-10-06] MEDS: ACETAMINOPHEN 325 MG TAB PO PRN (11:49)
[2020-10-06] MEDS: fentaNYL Drip 2500mCg/250mlNS 250 ML IV SCH (12:02)
[2020-10-06] MEDS ORDERED: AMIODARONE 450mg/250ml AE 250 ML IV ONE (12:30)
[2020-10-06] MEDS ORDERED: AMIODARONE HCL 150 MG in D5W 5% 100 ML IV ONE (12:30)
[2020-10-06] MEDS ORDERED: AMIODARONE 450mg/250ml AE 250 ML IV SCH (12:45)
[2020-10-06] MEDS ORDERED: CEFTRIAXONE SODIUM 2 GM in D5W 5% 50 ML IV ONE (13:15)
[2020-10-06] MEDS ORDERED: ALBUMIN 5% 250 ML IV ONE ×2 (13:15→18:00)
[2020-10-06] MEDS ORDERED: METOPROLOL TARTRATE 1MG/1ML-5ML VIAL IV ONE ×2 (14:28→14:30)
[2020-10-06] MEDS ORDERED: DIGOXIN (250MCG/ML) 2 ML AMPULE ONE (14:28)
[2020-10-06] MEDS ORDERED: DIGOXIN (250MCG/ML) 2 ML AMPULE IV ONE (14:30)
[2020-10-06 14:31] LABS: Magnesium 3.1 mg/dL (1.6-2.6)
[2020-10-06 14:41] LABS: Urine Bacteria FEW /hpf (None Seen); Urine Blood 3+ /uL (Negative); Urine Hyaline Cast FEW /lpf (0 - 2); Urine Mucus FEW (None Seen); Urine Specific Gravity 1.022 (1.001-1.035)
[2020-10-06 14:47] LABS: Urine WBC 20 /hpf (0 - 3)
[2020-10-06] MEDS: DOXYCYCLINE 100MG/250ML 250 ML IV SCH (16:10)
[2020-10-06] MEDS ORDERED: TPN PER PHARMACY 0 ML IV SCH (16:30)
[2020-10-06] MEDS: ACCU-CHEK COMFORT CURVE STRIP VI SCH ×2 (17:23→23:47)
[2020-10-06] MEDS: InsuLIN REG 1unit/0.01ml Soln (100units/ml) SC SCH ×2 (17:24→23:47)
[2020-10-06] MEDS: METOPROLOL TARTRATE 1MG/1ML-5ML VIAL IV SCH (18:00)
[2020-10-06] MEDS ORDERED: FUROSEMIDE 40 MG/4 ML VIAL IV SCH (18:00)
[2020-10-06] MEDS ORDERED: DEXTROSE (50%) 50ML SYRG IV SCH (18:00)
[2020-10-06] MEDS: IPRATROPIUM BROM 0.5 MG/2.5ML INH SOL NEB SCH (18:34)
[2020-10-06] MEDS: LEVALBUTEROL HCL 1.25 MG/3 ML NEB NEB SCH (18:34)
[2020-10-06] MEDS: AMIODARONE 450mg/250ml AE 250 ML IV SCH (18:38)
[2020-10-06] MEDS: AMINO ACID INFUSION IN D10W 1,000 ML IV NR (20:17)
[2020-10-06] MEDS: LORazepam 2MG/ML-1ML VIAL IV PRN (20:44)
[2020-10-07] VITALS (49 sets, daily range): BP systolic 101–152; BP diastolic 47–97
[2020-10-07] MEDS: IPRATROPIUM BROM 0.5 MG/2.5ML INH SOL NEB SCH ×4 (00:15→18:09)
[2020-10-07] MEDS: LEVALBUTEROL HCL 1.25 MG/3 ML NEB NEB SCH ×4 (00:16→18:09)
[2020-10-07] MEDS: DOXYCYCLINE 100MG/250ML 250 ML IV SCH (03:25)
[2020-10-07] MEDS: PHENYLEPHRINE INJ 40 MG in SODIUM CHL 0.9% 246 ML IV SCH ×2 (03:30→20:10)
[2020-10-07 04:22] LABS: Basophils # (auto) 0 10 ^3/uL (0-0.2); Eosinophils # (auto) 0.1 10 ^3/uL (0-0.8); Eosinophils % (auto) 1.3 % (0.0-7.0); Hematocrit 49.8 % (41.0-53.0); Hemoglobin 16.5 g/dL (13.5-17.5); Lymphocytes # (auto) 0.8 10 ^3/uL (0.4-5.4); Lymphocytes % (auto) 10.4 % (10.0-50.0); Mean Corpuscular Hemoglobin 32.8 pg (28.0-32.0); Mean Corpuscular Hgb Conc. 33.1 g/dL (32.0-36.0); Mean Corpuscular Volume 99.2 fL (80.0-100.0); Monocytes % (auto) 13.1 % (0.0-12.0); Neutrophils # (auto) 5.6 10 ^3/uL (1.6-8.6); Neutrophils % (auto) 75.2 % (37.0-80.0); Nucleated Red Blood Cells % 0.1 %; Platelet Count (auto) 186 10^3/uL (140-450); Red Blood Cells 5.02 10^6/uL (4.5-5.90); Red Cell Distribution Width 15.1 % (11.8-14.3); White Blood Cell 7.4 10^3/uL (4.4-10.8)
[2020-10-07 04:40] LABS: Potassium 3.4 mmol/L (3.5-5.1)
[2020-10-07 04:51] LABS: Albumin 2.4 g/dL (3.4-5.0); BUN/Creatinine Ratio 43.5; Bilirubin, Total 1.3 mg/dL (0.2-1.0); Calcium 8.7 mg/dL (8.5-10.1); Magnesium 2.9 mg/dL (1.6-2.6); Phosphorus 2.4 mg/dL (2.5-4.90); Pre Albumin 29.5 mg/dL (20.0-40.0); Total Protein 5.7 g/dL (6.4-8.2)
[2020-10-07] MEDS: LORazepam 2MG/ML-1ML VIAL IV PRN ×3 (05:17→21:56)
[2020-10-07] MEDS: METOPROLOL TARTRATE 1MG/1ML-5ML VIAL IV SCH ×5 (05:46→23:18)
[2020-10-07] MEDS: SODIUM CHLOR 0.9% PF (SALINE LOCK) 10ML VIAL/SYR IV SCH ×3 (05:46→21:36)
[2020-10-07] MEDS: ACCU-CHEK COMFORT CURVE STRIP VI SCH ×3 (05:52→17:32)
[2020-10-07] MEDS: InsuLIN REG 1unit/0.01ml Soln (100units/ml) SC SCH ×4 (05:53→17:32)
[2020-10-07] MEDS: MIDAZOLAM DRIP 50 mg/50mL 50 ML IV SCH (07:44)
[2020-10-07] MEDS: AMIODARONE 450mg/250ml AE 250 ML IV SCH ×2 (07:44→10:15)
[2020-10-07] MEDS: NOREPINEPHRINE 8 MG/250ML KIT 250 ML IV SCH (07:45)
[2020-10-07] MEDS: fentaNYL Drip 2500mCg/250mlNS 250 ML IV SCH (07:45)
[2020-10-07] MEDS: VASOPRESSIN 50 UNITS in D5W 5% 247.5 ML IV SCH (07:46)
[2020-10-07] MEDS: LACTULOSE 20Gm/30ML SOLN PO SCH (07:47)
[2020-10-07] MEDS: MULTIPLE VITAMIN TAB PO SCH (10:00)
[2020-10-07] MEDS ORDERED: FUROSEMIDE 40 MG/4 ML VIAL IV SCH (10:00)
[2020-10-07] MEDS ORDERED: ASPirin 81 mg TAB PO SCH (10:00)
[2020-10-07] MEDS: ENOXAPARIN SOD 150 MG/1 ML SYRINGE SC SCH (10:17)
[2020-10-07] MEDS: FAMOTIDINE (10MG/ML) 2ML VL IV SCH ×2 (10:17→21:36)
[2020-10-07] MEDS: CEFTRIAXONE SODIUM 2 GM in D5W 5% 50 ML IV SCH (10:17)
[2020-10-07] MEDS ORDERED: POTASSIUM PHOSPHATE 22 MEQ in SODIUM CHL 0.9% 100 ML IV ONE (11:30)
[2020-10-07] MEDS ORDERED: VANCOMYCIN PER PHARMACY 0 MG IV SCH (14:15)
[2020-10-07] MEDS: VANCOMYCIN 1GM/250ML 250 ML IV SCH (16:46)
[2020-10-07] MEDS ORDERED: TPN PER PHARMACY IV NR ×6 (20:00)
[2020-10-07] MEDS: AMINO ACID INFUSION IN D10W 1,000 ML IV NR (20:00)
[2020-10-07] MEDS ORDERED: HALOPERIDOL LACTATE 5 MG/ML INJ VIAL IM PRN (22:00)
[2020-10-08] VITALS (20 sets, daily range): BP systolic 101–155; BP diastolic 61–124
[2020-10-08] MEDS: IPRATROPIUM BROM 0.5 MG/2.5ML INH SOL NEB SCH ×4 (00:13→18:23)
[2020-10-08] MEDS: LEVALBUTEROL HCL 1.25 MG/3 ML NEB NEB SCH ×4 (00:15→18:22)
[2020-10-08 04:42] LABS: Basophils # (auto) 0 10 ^3/uL (0-0.2); Basophils % (auto) 0.3 % (0.0-2.0); Eosinophils # (auto) 0.2 10 ^3/uL (0-0.8); Eosinophils % (auto) 1.9 % (0.0-7.0); Hematocrit 49.7 % (41.0-53.0); Hemoglobin 16.3 g/dL (13.5-17.5); Lymphocytes # (auto) 0.6 10 ^3/uL (0.4-5.4); Lymphocytes % (auto) 6.4 % (10.0-50.0); Mean Corpuscular Hemoglobin 32.2 pg (28.0-32.0); Mean Corpuscular Hgb Conc. 32.9 g/dL (32.0-36.0); Mean Corpuscular Volume 97.8 fL (80.0-100.0); Neutrophils # (auto) 7.7 10 ^3/uL (1.6-8.6); Neutrophils % (auto) 81.4 % (37.0-80.0); Nucleated Red Blood Cells % 0.1 %; Platelet Count (auto) 201 10^3/uL (140-450); Potassium 3.7 mmol/L (3.5-5.1); Red Blood Cells 5.08 10^6/uL (4.5-5.90); White Blood Cell 9.5 10^3/uL (4.4-10.8)
[2020-10-08 04:50] LABS: Albumin 2.3 g/dL (3.4-5.0); BUN/Creatinine Ratio 47.8; Bilirubin, Total 1.1 mg/dL (0.2-1.0); Magnesium 2.6 mg/dL (1.6-2.6); Phosphorus 2.2 mg/dL (2.5-4.90); Total Protein 5.8 g/dL (6.4-8.2)
[2020-10-08] MEDS: VANCOMYCIN 1GM/250ML 250 ML IV SCH ×2 (05:00→18:29)
[2020-10-08] MEDS: METOPROLOL TARTRATE 1MG/1ML-5ML VIAL IV SCH ×4 (06:00→14:01)
[2020-10-08] MEDS: InsuLIN REG 1unit/0.01ml Soln (100units/ml) SC SCH ×4 (06:00→23:53)
[2020-10-08] MEDS: ACCU-CHEK COMFORT CURVE STRIP VI SCH ×5 (06:00→23:54)
[2020-10-08] MEDS: SODIUM CHLOR 0.9% PF (SALINE LOCK) 10ML VIAL/SYR IV SCH ×3 (06:00→22:00)
[2020-10-08] MEDS: LORazepam 2MG/ML-1ML VIAL IV PRN ×3 (06:00→20:00)
[2020-10-08] MEDS ORDERED: POTASSIUM PHOSP 22MEQ(15MMOLE) in NS 100 ML IV ONE (09:15)
[2020-10-08] MEDS: THIAMINE 100mg/ml INJ (200mg/2ml VIAL) IV SCH (10:20)
[2020-10-08] MEDS: FUROSEMIDE 20 MG/2 ML VIAL IV SCH (10:23)
[2020-10-08] MEDS: LACTULOSE 20Gm/30ML SOLN PO SCH (10:24)
[2020-10-08] MEDS: FAMOTIDINE (10MG/ML) 2ML VL IV SCH ×2 (10:24→22:00)
[2020-10-08] MEDS: MULTIPLE VITAMIN TAB PO SCH (10:25)
[2020-10-08] MEDS: CEFTRIAXONE SODIUM 2 GM in D5W 5% 50 ML IV SCH (10:27)
[2020-10-08] MEDS ORDERED: SODIUM PHOSPHATES 20 MEQ in SODIUM CHL 0.9% 100 ML IV ONE (10:30)
[2020-10-08] MEDS: PHENYLEPHRINE INJ 40 MG in SODIUM CHL 0.9% 246 ML IV SCH (12:50)
[2020-10-08 13:10] LABS: INR 1.67 (0.9-1.15); Partial Thromboplastin Time 32.7 sec (23.0-31.2)
[2020-10-08] MEDS ORDERED: LIDOCAINE 1% (LOCAL ANESTH.) PF 5ml SDV ID ONE (15:00)
[2020-10-08] MEDS: HALOPERIDOL LACTATE 5 MG/ML INJ VIAL IM PRN ×2 (16:34)
[2020-10-08] MEDS: AMIODARONE 450mg/250ml AE 250 ML IV SCH (16:36)
[2020-10-08] MEDS: TPN PER PHARMACY IV NR ×8 (20:05)
[2020-10-09] VITALS (28 sets, daily range): BP systolic 99–145; BP diastolic 54–105
[2020-10-09] MEDS: LEVALBUTEROL HCL 1.25 MG/3 ML NEB NEB SCH ×5 (00:13→18:51)
[2020-10-09] MEDS: IPRATROPIUM BROM 0.5 MG/2.5ML INH SOL NEB SCH ×5 (00:13→18:51)
[2020-10-09] MEDS: HALOPERIDOL LACTATE 5 MG/ML INJ VIAL IM PRN (01:30)
[2020-10-09 04:35] LABS: Basophils # (auto) 0 10 ^3/uL (0-0.2); Basophils % (auto) 0.2 % (0.0-2.0); Eosinophils # (auto) 0.3 10 ^3/uL (0-0.8); Eosinophils % (auto) 2.9 % (0.0-7.0); Hematocrit 45.8 % (41.0-53.0); Lymphocytes # (auto) 0.7 10 ^3/uL (0.4-5.4); Lymphocytes % (auto) 8.5 % (10.0-50.0); Mean Corpuscular Hemoglobin 32.1 pg (28.0-32.0); Mean Corpuscular Hgb Conc. 32.8 g/dL (32.0-36.0); Mean Corpuscular Volume 97.8 fL (80.0-100.0); Neutrophils # (auto) 6.7 10 ^3/uL (1.6-8.6); Neutrophils % (auto) 77.4 % (37.0-80.0); Nucleated Red Blood Cells % 0.1 %; Platelet Count (auto) 176 10^3/uL (140-450); Red Blood Cells 4.69 10^6/uL (4.5-5.90); Red Cell Distribution Width 15.5 % (11.8-14.3); White Blood Cell 8.7 10^3/uL (4.4-10.8)
[2020-10-09] MEDS: VANCOMYCIN 1GM/250ML 250 ML IV SCH (05:00)
[2020-10-09 05:07] LABS: Albumin 2.1 g/dL (3.4-5.0); Calcium 8.6 mg/dL (8.5-10.1); Magnesium 2.4 mg/dL (1.6-2.6); Phosphorus 2.5 mg/dL (2.5-4.90); Potassium 4.4 mmol/L (3.5-5.1)
[2020-10-09 05:12] LABS: BUN/Creatinine Ratio 42.4; Bilirubin, Total 1.3 mg/dL (0.2-1.0); Total Protein 5.5 g/dL (6.4-8.2)
[2020-10-09] MEDS: PHENYLEPHRINE INJ 40 MG in SODIUM CHL 0.9% 246 ML IV SCH (05:30)
[2020-10-09] MEDS: InsuLIN REG 1unit/0.01ml Soln (100units/ml) SC SCH ×4 (06:00→23:27)
[2020-10-09] MEDS: ACCU-CHEK COMFORT CURVE STRIP VI SCH ×4 (06:08→23:28)
[2020-10-09] MEDS: METOPROLOL TARTRATE 1MG/1ML-5ML VIAL IV SCH ×4 (06:22→23:28)
[2020-10-09] MEDS: AMIODARONE 450mg/250ml AE 250 ML IV SCH (07:00)
[2020-10-09] MEDS: THIAMINE 100mg/ml INJ (200mg/2ml VIAL) IV SCH (09:36)
[2020-10-09] MEDS: FAMOTIDINE (10MG/ML) 2ML VL IV SCH ×2 (09:37→21:48)
[2020-10-09] MEDS: FUROSEMIDE 20 MG/2 ML VIAL IV SCH (09:37)
[2020-10-09] MEDS: MULTIPLE VITAMIN TAB PO SCH (09:38)
[2020-10-09] MEDS: ENALAPRIL MALEATE 2.5 MG TAB PO SCH (09:38)
[2020-10-09] MEDS: SPIRONOLACTONE 25 MG TAB PO SCH (09:38)
[2020-10-09] MEDS: LACTULOSE 20Gm/30ML SOLN PO SCH (09:39)
[2020-10-09] MEDS: CEFTRIAXONE SODIUM 2 GM in D5W 5% 50 ML IV SCH (09:40)
[2020-10-09] MEDS: SODIUM CHLOR 0.9% PF (SALINE LOCK) 10ML VIAL/SYR IV SCH ×2 (09:40→21:48)
[2020-10-09] MEDS ORDERED: VANCOMYCIN 1GM/250ML 250 ML IV SCH (13:00)
[2020-10-09] MEDS: LORazepam 2MG/ML-1ML VIAL IV PRN ×3 (16:11→22:54)
[2020-10-09] MEDS: TPN PER PHARMACY IV NR ×8 (19:50)
[2020-10-09] MEDS ORDERED: TPN PER PHARMACY IV NR ×6 (20:00)
[2020-10-10] VITALS (13 sets, daily range): BP systolic 103–143; BP diastolic 65–87
[2020-10-10] MEDS: HALOPERIDOL LACTATE 5 MG/ML INJ VIAL IM PRN
[2020-10-10] MEDS: IPRATROPIUM BROM 0.5 MG/2.5ML INH SOL NEB SCH ×4 (00:40→20:21)
[2020-10-10] MEDS: LEVALBUTEROL HCL 1.25 MG/3 ML NEB NEB SCH ×4 (00:40→20:21)
[2020-10-10 04:42] LABS: Basophils # (auto) 0.1 10 ^3/uL (0-0.2); Basophils % (auto) 0.7 % (0.0-2.0); Eosinophils # (auto) 0.7 10 ^3/uL (0-0.8); Eosinophils % (auto) 7.7 % (0.0-7.0); Hematocrit 45.2 % (41.0-53.0); Hemoglobin 15.1 g/dL (13.5-17.5); Lymphocytes # (auto) 0.7 10 ^3/uL (0.4-5.4); Lymphocytes % (auto) 7.9 % (10.0-50.0); Mean Corpuscular Hemoglobin 32.6 pg (28.0-32.0); Mean Corpuscular Hgb Conc. 33.4 g/dL (32.0-36.0); Mean Corpuscular Volume 97.5 fL (80.0-100.0); Monocytes # (auto) 0.9 10 ^3/uL (0-1.3); Monocytes % (auto) 10.1 % (0.0-12.0); Neutrophils # (auto) 6.7 10 ^3/uL (1.6-8.6); Neutrophils % (auto) 73.6 % (37.0-80.0); Nucleated Red Blood Cells % 0.2 %; Platelet Count (auto) 233 10^3/uL (140-450); Red Blood Cells 4.63 10^6/uL (4.5-5.90); Red Cell Distribution Width 15.1 % (11.8-14.3); White Blood Cell 9.1 10^3/uL (4.4-10.8)
[2020-10-10 05:00] LABS: Albumin 2.2 g/dL (3.4-5.0); Calcium 8.1 mg/dL (8.5-10.1); Magnesium 2.2 mg/dL (1.6-2.6); Potassium 3.9 mmol/L (3.5-5.1)
[2020-10-10 05:02] LABS: BUN/Creatinine Ratio 36.8
[2020-10-10 05:04] LABS: Phosphorus 2.9 mg/dL (2.5-4.90); Total Protein 5.8 g/dL (6.4-8.2)
[2020-10-10] MEDS: InsuLIN REG 1unit/0.01ml Soln (100units/ml) SC SCH ×4 (06:00→23:23)
[2020-10-10] MEDS: METOPROLOL TARTRATE 1MG/1ML-5ML VIAL IV SCH ×4 (07:09→23:21)
[2020-10-10] MEDS: ACCU-CHEK COMFORT CURVE STRIP VI SCH ×4 (07:10→23:22)
[2020-10-10] MEDS: LORazepam 2MG/ML-1ML VIAL IV PRN ×2 (09:40→23:19)
[2020-10-10] MEDS: SPIRONOLACTONE 25 MG TAB PO SCH (10:00)
[2020-10-10] MEDS: ENALAPRIL MALEATE 2.5 MG TAB PO SCH (10:00)
[2020-10-10] MEDS: LACTULOSE 20Gm/30ML SOLN PO SCH (10:00)
[2020-10-10] MEDS: MULTIPLE VITAMIN TAB PO SCH (10:00)
[2020-10-10] MEDS: THIAMINE 100mg/ml INJ (200mg/2ml VIAL) IV SCH (10:18)
[2020-10-10] MEDS: FUROSEMIDE 20 MG/2 ML VIAL IV SCH (10:19)
[2020-10-10] MEDS: FAMOTIDINE (10MG/ML) 2ML VL IV SCH ×2 (10:20→23:00)
[2020-10-10] MEDS: SODIUM CHLOR 0.9% PF (SALINE LOCK) 10ML VIAL/SYR IV SCH ×2 (10:20→23:00)
[2020-10-10] MEDS: CEFTRIAXONE SODIUM 2 GM in D5W 5% 50 ML IV SCH (11:55)
[2020-10-10] MEDS ORDERED: TPN PER PHARMACY IV NR ×8 (20:00)
[2020-10-11 05:00] VITALS: BP 129/83
[2020-10-11] MEDS: METOPROLOL TARTRATE 1MG/1ML-5ML VIAL IV SCH ×3 (05:32→18:00)
[2020-10-11] MEDS: ACCU-CHEK COMFORT CURVE STRIP VI SCH ×3 (05:47→17:59)
[2020-10-11] MEDS: InsuLIN REG 1unit/0.01ml Soln (100units/ml) SC SCH ×3 (05:47→18:00)
[2020-10-11 07:12] LABS: Basophils # (auto) 0 10 ^3/uL (0-0.2); Basophils % (auto) 0.3 % (0.0-2.0); Eosinophils # (auto) 0.2 10 ^3/uL (0-0.8); Eosinophils % (auto) 2.2 % (0.0-7.0); Hematocrit 46.8 % (41.0-53.0); Hemoglobin 15.5 g/dL (13.5-17.5); Lymphocytes # (auto) 0.6 10 ^3/uL (0.4-5.4); Lymphocytes % (auto) 5.6 % (10.0-50.0); Mean Corpuscular Hemoglobin 32.4 pg (28.0-32.0); Mean Corpuscular Hgb Conc. 33.2 g/dL (32.0-36.0); Mean Corpuscular Volume 97.8 fL (80.0-100.0); Monocytes # (auto) 1.1 10 ^3/uL (0-1.3); Monocytes % (auto) 10.2 % (0.0-12.0); Neutrophils # (auto) 8.5 10 ^3/uL (1.6-8.6); Neutrophils % (auto) 81.7 % (37.0-80.0); Nucleated Red Blood Cells % 0.1 %; Platelet Count (auto) 201 10^3/uL (140-450); Red Blood Cells 4.79 10^6/uL (4.5-5.90); Red Cell Distribution Width 15.3 % (11.8-14.3); White Blood Cell 10.4 10^3/uL (4.4-10.8)
[2020-10-11 07:34] LABS: Potassium 4.1 mmol/L (3.5-5.1)
[2020-10-11 07:43] LABS: Albumin 2.6 g/dL (3.4-5.0); BUN/Creatinine Ratio 34.4; Bilirubin, Total 0.8 mg/dL (0.2-1.0); Calcium 8.9 mg/dL (8.5-10.1); Magnesium 2.4 mg/dL (1.6-2.6); Phosphorus 3.7 mg/dL (2.5-4.90); Total Protein 6.4 g/dL (6.4-8.2)
[2020-10-11] MEDS: IPRATROPIUM BROM 0.5 MG/2.5ML INH SOL NEB SCH ×3 (07:52→11:36)
[2020-10-11] MEDS: LEVALBUTEROL HCL 1.25 MG/3 ML NEB NEB SCH ×3 (07:53→11:36)
[2020-10-11 09:00] VITALS: BP 148/93
[2020-10-11] MEDS: FUROSEMIDE 20 MG/2 ML VIAL IV SCH (09:51)
[2020-10-11] MEDS: FAMOTIDINE (10MG/ML) 2ML VL IV SCH (09:51)
[2020-10-11] MEDS: THIAMINE 100mg/ml INJ (200mg/2ml VIAL) IV SCH (09:51)
[2020-10-11] MEDS: SPIRONOLACTONE 25 MG TAB PO SCH (09:52)
[2020-10-11] MEDS: MULTIPLE VITAMIN TAB PO SCH (09:52)
[2020-10-11] MEDS: SODIUM CHLOR 0.9% PF (SALINE LOCK) 10ML VIAL/SYR IV SCH (09:52)
[2020-10-11] MEDS: CEFTRIAXONE SODIUM 2 GM in D5W 5% 50 ML IV SCH (09:53)
[2020-10-11] MEDS: ENALAPRIL MALEATE 2.5 MG TAB PO SCH (09:53)
[2020-10-11] MEDS ORDERED: ENAL2.5T7 PO (10:42)
[2020-10-11 12:42] VITALS: BP 142/98
[2020-10-11 13:21] VITALS: BP 142/98
[2020-10-11 16:46] VITALS: BP 115/60
[2020-10-11] MEDS ORDERED: TPN PER PHARMACY IV NR ×9 (20:00)
== END 2020-10-11 19:00 | DRG 720 ==
LOC: ER 23:51 → TELE 23:52 → ICU WEST 09-28 10:14 → TELE-WESTW 10-10 06:27
PROVIDERS: ADMIT Nurse Practitioner Family; ATTEND Internal Medicine Pulmonary Disease
PROC: 5A1955Z Respiratory Ventilation, Greater than 96 Consecutive Hours (ICD-10-PCS; principal; 2020-09-28)
PROC: 0BH17EZ Insertion of Endotracheal Airway into Trachea, Via Natural or Artificial Opening (ICD-10-PCS; 2020-09-28)
PROC: 5A09357 Assistance with Respiratory Ventilation, Less than 24 Consecutive Hours, Continuous Positive Airway Pressure (ICD-10-PCS; 2020-09-28)
PROC: 02HV33Z Insertion of Infusion Device into Superior Vena Cava, Percutaneous Approach (ICD-10-PCS; 2020-09-28)
PROC: 5A09357 Assistance with Respiratory Ventilation, Less than 24 Consecutive Hours, Continuous Positive Airway Pressure (ICD-10-PCS; 2020-10-06)
PROC: 5A09357 Assistance with Respiratory Ventilation, Less than 24 Consecutive Hours, Continuous Positive Airway Pressure (ICD-10-PCS; 2020-10-07)
PROC: 3E0436Z Introduction of Nutritional Substance into Central Vein, Percutaneous Approach (ICD-10-PCS; 2020-10-07)
PROC: 5A09357 Assistance with Respiratory Ventilation, Less than 24 Consecutive Hours, Continuous Positive Airway Pressure (ICD-10-PCS; 2020-10-08)
PROC: 5A09357 Assistance with Respiratory Ventilation, Less than 24 Consecutive Hours, Continuous Positive Airway Pressure (ICD-10-PCS; 2020-10-09)
PROC: 5A09357 Assistance with Respiratory Ventilation, Less than 24 Consecutive Hours, Continuous Positive Airway Pressure (ICD-10-PCS; 2020-10-10)
DX: A41.9 Sepsis, unspecified organism (principal); I21.4 Non-ST elevation (NSTEMI) myocardial infarction; J96.01 Acute respiratory failure with hypoxia; J96.02 Acute respiratory failure with hypercapnia; J44.1 Chronic obstructive pulmonary disease with (acute) exacerbation; R57.9 Shock, unspecified; I62.00 Nontraumatic subdural hemorrhage, unspecified; N17.9 Acute kidney failure, unspecified; I50.23 Acute on chronic systolic (congestive) heart failure; G93.41 Metabolic encephalopathy; E87.2 Acidosis; I48.20 Chronic atrial fibrillation, unspecified; I48.92 Unspecified atrial flutter; B95.7 Other staphylococcus as the cause of diseases classified elsewhere; I13.0 Hypertensive heart and chronic kidney disease with heart failure and stage 1 through stage 4 chronic kidney disease, or unspecified chronic kidney disease; G62.9 Polyneuropathy, unspecified; Z20.822 Contact with and (suspected) exposure to COVID-19; R77.8 Other specified abnormalities of plasma proteins; R32 Unspecified urinary incontinence; Z80.0 Family history of malignant neoplasm of digestive organs; Z80.3 Family history of malignant neoplasm of breast; Z82.5 Family history of asthma and other chronic lower respiratory diseases
CPT/HCPCS: 36415; 36569; 36600; 51702; 70450; 71045; 74018; 80048; 80053; 80202; 81001; 82040; 82565; 82805; 82962; 83605; 83735; 83880; 84100; 84478; 84484; 85025; 85379; 85610; 85730; 87040; 87070; 87077; 87081; 87086; 87186; 87205; 87426; 92610; 93005; 93306; 93926; 94002; 94003; 94640; 94660; 95819; 96372; 96374; 96375; 97110; 97530; G0378; J0153; J0330; J0696; J1815; J2250; J2405; J3490; J7060; J7131